=== PATIENT | female | born 1950 | race African-American/Black ===

== ENCOUNTER 2018-09-12 02:08 | Inpatient (IN) | payer MEDICARE, MEDICAID ==
[~2018-09-12] VITALS: Ht 160 cm; Wt 86.0 kg
[~2018-09-12 02:08] MED LIST: TRAM50TA94
[2018-09-12] MEDS ORDERED: ONDANSETRON HCL 4MG/2ML INJ IV ONE (03:00)
[2018-09-12] MEDS ORDERED: DIPHENHYDRAMINE 50MG/ML VIAL IV ONE (03:00)
[2018-09-12 03:02] LABS: BASOPHILS % 1.1 % (0.0-2.0); EOSINOPHILS % 2.9 % (0.0-5.0); HEMATOCRIT. 37.7 % (36.0-48.0); HEMOGLOBIN. 12.5 g/dL (12.0-16.0); LYMPHOCYTES % 36.3 % (20.0-50.0); MEAN CORPUSCULAR HEMOGLOBIN 30.8 pg (28.0-32.0); MONOCYTES % 9.6 % (2.0-8.0); NEUTROPHILS % 50.1 % (40.0-76.0); PLATELET 276 x1000/uL (130-400); RED BLOOD CELL COUNT 4.06 mill/uL (4.2-5.4); RED CELL DISTRIBUTION WIDTH 15.2 % (11.6-14.6)
[2018-09-12 03:06] LABS: CHLORIDE 113 mEq/L (98-107)
[2018-09-12] MEDS ORDERED: ACETAMINOPHEN 325MG TABLET PO PRN (07:45)
[2018-09-12] MEDS ORDERED: DOCUSATE SODIUM 100MG CAPSULE PO PRN (07:45)
[2018-09-12] MEDS ORDERED: CLONIDINE 0.1MG TABLET PO PRN (07:45)
[2018-09-12] MEDS ORDERED: HYDROCODONE/ACETAMINOPHEN 5/325MG TABLET PO PRN (07:45)
[2018-09-12] MEDS ORDERED: IPRATROPIUM/ALBUTEROL 0.5-3(2.5)MG/3ML NEB INH PRN (07:45)
[2018-09-12] MEDS ORDERED: ONDANSETRON HCL 4MG/2ML INJ IV PRN (07:45)
[2018-09-12] MEDS ORDERED: MAGNESIUM/ALUMINUM HYDROXIDE/SIMETHICONE 30ML UDC PO PRN (07:45)
[2018-09-12] MEDS ORDERED: GUAIFENESIN 200MG/10ML SUGAR FREE UDC PO PRN (07:45)
[2018-09-12] MEDS ORDERED: AMLODIPINE 10MG TABLET PO SCH (09:00)
[2018-09-12 11:00] VITALS: BP 119/74
[2018-09-12 11:18] VITALS: BP 119/74
[2018-09-12] MEDS ORDERED: NORCO (11:33)
[2018-09-12] MEDS ORDERED: BACL-141 MT (11:33)
[2018-09-12] MEDS ORDERED: GABA-531 MT (11:33)
[2018-09-12] MEDS: AMLODIPINE 10MG TABLET PO SCH (12:32)
[2018-09-12] MEDS: ASPIRIN 81MG TABLET PO SCH (13:54)
[2018-09-12] MEDS: MORPHINE SULFATE 2 MG/ML CPJ (NOT FOR IM USE) IV PRN (14:33)
[2018-09-12 16:00] VITALS: BP 144/78
[2018-09-12 16:29] LABS: CREATINE KINASE 958 IU/L (26-192)
[2018-09-12 16:30] LABS: CREATINE KINASE MB FRACTION 4.9 ng/mL (0.5-3.6)
[2018-09-12] MEDS ORDERED: HYDR-4009 PO (19:54)
[2018-09-12 20:00] VITALS: BP 124/75
[2018-09-12] MEDS: BACLOFEN 10MG TABLET PO SCH (22:14)
[2018-09-13] VITALS: BP 122/74
[2018-09-13 01:11] LABS: CREATINE KINASE 797 IU/L (26-192)
[2018-09-13 01:12] LABS: CREATINE KINASE MB FRACTION 2.9 ng/mL (0.5-3.6)
[2018-09-13 04:00] VITALS: BP 137/78
[2018-09-13] MEDS: MORPHINE SULFATE 2 MG/ML CPJ (NOT FOR IM USE) IV PRN (04:19)
[2018-09-13 06:12] LABS: BASOPHILS % 0.7 % (0.0-2.0); EOSINOPHILS % 3.2 % (0.0-5.0); HEMATOCRIT. 37.9 % (36.0-48.0); HEMOGLOBIN. 12.4 g/dL (12.0-16.0); LYMPHOCYTES % 33.4 % (20.0-50.0); MEAN CORPUSCULAR HEMOGLOBIN 30.6 pg (28.0-32.0); MEAN CORPUSCULAR VOLUME 93.3 fL (81.0-99.0); MONOCYTES % 8.6 % (2.0-8.0); NEUTROPHILS % 54.1 % (40.0-76.0); PLATELET 245 x1000/uL (130-400); RED BLOOD CELL COUNT 4.06 mill/uL (4.2-5.4); RED CELL DISTRIBUTION WIDTH 15.3 % (11.6-14.6)
[2018-09-13 06:23] LABS: CHLORIDE 110 mEq/L (98-107)
[2018-09-13 06:37] LABS: LDL CHOLESTEROL 81 mg/dL (5-100)
[2018-09-13 06:39] LABS: HDL CHOLESTEROL 63 mg/dL (40-59)
[2018-09-13 07:43] LABS: CLARITY URINE CLEAR (CLEAR); COLOR URINE YELLOW (YELLOW); KETONES URINE 1+ (NEGATIVE); LEUKOCYTE ESTERASE URINE NEGATIVE (NEGATIVE); NITRITE URINE NEGATIVE (NEGATIVE); OCCULT BLOOD URINE NEGATIVE (NEGATIVE); PH URINE 5.5 (4.5-8.0); PROTEIN URINE NEGATIVE (NEGATIVE); SPECIFIC GRAVITY URINE 1.024 (1.005-1.030)
[2018-09-13 08:00] VITALS: BP 147/83
[2018-09-13] MEDS: BACLOFEN 10MG TABLET PO SCH (08:38)
[2018-09-13] MEDS: ASPIRIN 81MG TABLET PO SCH (08:39)
[2018-09-13] MEDS: AMLODIPINE 10MG TABLET PO SCH (08:39)
[2018-09-13] MEDS ORDERED: MEDICATION NOT ON FORMULARY EA (Baclofen 1 TAB) MT SCH (09:00)
[2018-09-13] MEDS ORDERED: GABAPENTIN 300MG CAPSULE PO SCH (09:00)
[2018-09-13] MEDS ORDERED: MEDICATION NOT ON FORMULARY EA (Gabapentin 1 CAP) MT SCH (09:00)
[2018-09-13 10:52] VITALS: BP 147/83
[2018-09-13 12:00] VITALS: BP 129/85
== END 2018-09-13 13:42 | disposition home or self-care (01) | DRG 103 ==
LOC: ER 02:08 → 8WST 05:20 → EDBEDREQTM 05:21 → EDBEDREQ 05:21 → ENRESERV 10:01
PROVIDERS: ADMIT Hospitalist; ATTEND Hospitalist
DX: R51 Headache (principal); I10 Essential (primary) hypertension; M19.90 Unspecified osteoarthritis, unspecified site; R53.1 Weakness; Z88.0 Allergy status to penicillin; Z79.899 Other long term (current) drug therapy
CPT/HCPCS: 36415; 70551; 71045; 80061; 82550; 82553; 82962; 84443; 84484; 93005; 99285; J1200; J2270; J2405

== ENCOUNTER 2020-10-19 19:41 | Emergency (ER) | payer MEDICARE, MEDICAID ==
[~2020-10-19] VITALS: Ht 167.6 cm; Wt 100.0 kg
[~2020-10-19 19:41] MED LIST changes: +BACL-141 MT; +ESCI10TA MT; +GABA-532 MT; +HYDR-4009 PO; -TRAM50TA94; +TRAZ-251 MT
[2020-10-19 20:54] LABS: BASOPHILS % 0.5 % (0.0-2.0); EOSINOPHILS % 3.7 % (0.0-5.0); HEMATOCRIT. 39.2 % (36.0-48.0); HEMOGLOBIN. 12.2 g/dL (12.0-16.0); LYMPHOCYTES % 23.6 % (20.0-50.0); MEAN CORPUSCULAR HEMOGLOBIN 28.6 pg (28.0-32.0); MEAN CORPUSCULAR VOLUME 92.1 fL (81.0-99.0); MEAN PLATELET VOLUME 8.3 fl (7.4-10.4); MONOCYTES % 7.4 % (2.0-8.0); NEUTROPHILS % 64.8 % (40.0-76.0); PLATELET 236 x1000/uL (130-400); RED BLOOD CELL COUNT 4.26 mill/uL (4.2-5.4); RED CELL DISTRIBUTION WIDTH 18.7 % (11.6-14.6)
[2020-10-19 21:00] LABS: CHLORIDE 112 mEq/L (98-107)
[2020-10-20] VITALS: BP 154/73
== END 2020-10-20 00:28 | disposition home or self-care (01) ==
LOC: ER 19:52
DX: T40.2X1A Poisoning by other opioids, accidental (unintentional), initial encounter (principal); G92 Toxic encephalopathy; E11.9 Type 2 diabetes mellitus without complications; G40.909 Epilepsy, unspecified, not intractable, without status epilepticus; G89.29 Other chronic pain; Z98.1 Arthrodesis status; Z88.0 Allergy status to penicillin; Y92.018 Other place in single-family (private) house as the place of occurrence of the external cause
CPT/HCPCS: 36415; 80048; 80307; 85025; 99283

== ENCOUNTER 2022-02-24 00:40 | Inpatient (IN) | payer MEDICARE, MEDICAID ==
[~2022-02-24] VITALS: Ht 160 cm; Wt 98.9 kg
[2022-02-24] MEDS ORDERED: IPRATROPIUM BROMIDE (0.02%) 0.5MG/2.5ML NEB HHN STA (01:13)
[2022-02-24] MEDS ORDERED: METHYLPREDNISOLONE SOD SUCC 125 MG/2 ML VIAL IV STA (01:13)
[2022-02-24] MEDS ORDERED: ALBUTEROL (0.083%) 2.5MG/3ML NEB HHN STA (01:13)
[2022-02-24] MEDS ORDERED: MAGNESIUM 2 G PREMIX 50 ML IV STA (01:13)
[2022-02-24 01:59] LABS: BASOPHILS % 0.5 % (0.0-2.0); EOSINOPHILS % 7.9 % (0.0-5.0); HEMATOCRIT. 40.4 % (36.0-48.0); HEMOGLOBIN. 12.5 g/dL (12.0-16.0); LYMPHOCYTES % 26.7 % (20.0-50.0); MEAN CORPUSCULAR HEMOGLOBIN 29.5 pg (28.0-32.0); MEAN CORPUSCULAR VOLUME 95.7 fL (81.0-99.0); MEAN PLATELET VOLUME 8.7 fl (7.4-10.4); NEUTROPHILS % 56.9 % (40.0-76.0); PLATELET 265 x1000/uL (130-400); RED BLOOD CELL COUNT 4.23 mill/uL (4.2-5.4); RED CELL DISTRIBUTION WIDTH 16.2 % (11.6-14.6)
[2022-02-24 02:08] LABS: CHLORIDE 111 mEq/L (98-107)
[2022-02-24] MEDS ORDERED: FUROSEMIDE 100MG/10ML VIAL IVP NR (02:15)
[2022-02-24] MEDS ORDERED: ACETAMINOPHEN 325MG TABLET PO PRN ×3 (03:45→04:45)
[2022-02-24] MEDS ORDERED: METHYLPREDNISOLONE SOD SUCC 125 MG/2 ML VIAL IV NR (03:45)
[2022-02-24] MEDS ORDERED: IPRATROPIUM/ALBUTEROL 0.5-3(2.5)MG/3ML NEB HHN PRN ×2 (03:45→04:45)
[2022-02-24] MEDS ORDERED: CLONIDINE 0.1MG TABLET PO PRN ×2 (03:45→04:45)
[2022-02-24] MEDS ORDERED: GUAIFENESIN 200MG/10ML SUGAR FREE UDC PO PRN (04:45)
[2022-02-24] MEDS ORDERED: ONDANSETRON HCL 4MG/2ML INJ IV PRN (04:45)
[2022-02-24] MEDS: IPRATROPIUM/ALBUTEROL 0.5-3(2.5)MG/3ML NEB HHN SCH ×2 (04:45→11:30)
[2022-02-24] MEDS ORDERED: DIPHENHYDRAMINE 50MG/ML VIAL IV PRN (04:45)
[2022-02-24] MEDS: SODIUM CHLORIDE 0.9% INJ 3ML FLUSH IVF SCH ×5 (06:52→21:45)
[2022-02-24] MEDS ORDERED: ENOXAPARIN 40MG/0.4ML SYR SUBCUT SCH (09:00)
[2022-02-24] MEDS ORDERED: NOREPINEPHRINE 8 MG in DEXTROSE 5% WATER 250 ML IV PRN (10:15)
[2022-02-24 10:58] LABS: BG BASE EXCESS -3.5 mmol/L (-2.0-2.0); BG CARBOXYHEMOGLOBIN 0.8 % (0.5-1.5); BG DEOXYHEMOGLOBIN 6.1 % (0.0-5.0); BG FRACTION INSPIRED OXYGEN 21; BG HCO3 ACT 22.2 mmol/L (22.0-26.0); BG METHEMOGLOBIN 0.1 % (0.0-1.5); BG OXYGEN SATURATION 93.8 % (92.0-98.5); BG PCO2 42.7 mmHg (35.0-45.0); BG PH 7.334 (7.350-7.450); BG PO2 68.5 mmHg (75.0-100.0); BG SAMPLE SITE LEFT BRACHIAL; BG VENT MODE ROOM AIR
[2022-02-24 16:00] VITALS: BP 146/79
[2022-02-24 20:00] VITALS: BP 106/99
[2022-02-24] MEDS: ACETAMINOPHEN 325MG TABLET PO PRN (20:01)
[2022-02-24] MEDS ORDERED: FURO20TA4 PO (20:23)
[2022-02-24] MEDS ORDERED: AMLO10TA80 PO (20:23)
[2022-02-24] MEDS ORDERED: LOSA25TA26 MT (20:23)
[2022-02-24] MEDS ORDERED: MIRT-89 PO (20:23)
[2022-02-25] VITALS: BP 128/83
[2022-02-25] MEDS: ACETAMINOPHEN 325MG TABLET PO PRN (00:01)
[2022-02-25] MEDS: SODIUM CHLORIDE 0.9% INJ 3ML FLUSH IVF SCH (05:14)
[2022-02-25] MEDS ORDERED: LORATADINE 10MG TABLET PO SCH (11:15)
[2022-02-25] MEDS ORDERED: MONTELUKAST SODIUM 10MG TABLET PO SCH (17:00)
== END 2022-02-25 11:30 | disposition left against medical advice (07) | DRG 189 ==
LOC: ER 00:40 → MICUSO 03:41 → 8WST 15:16
PROVIDERS: ADMIT Internal Medicine; ATTEND Internal Medicine
DX: J96.01 Acute respiratory failure with hypoxia (principal); J45.901 Unspecified asthma with (acute) exacerbation; D72.10 Eosinophilia, unspecified; Z20.822 Contact with and (suspected) exposure to COVID-19; M19.90 Unspecified osteoarthritis, unspecified site; R56.9 Unspecified convulsions; Z53.29 Procedure and treatment not carried out because of patient's decision for other reasons; Z88.0 Allergy status to penicillin; Z79.899 Other long term (current) drug therapy
CPT/HCPCS: 36415; 36600; 71045; 80053; 82375; 82805; 82962; 83880; 84484; 85025; 87426; 93005; 93970; 99285; J1650; J1940; J2930; J3475